=== PATIENT | male | born 1945 | race Caucasian/White ===

== ENCOUNTER 2017-05-09 09:09 | Observation (INO) | payer MEDICARE, OTHER ==
[~2017-05-09 09:09] MED LIST: ALBU0.08 NEB; AMIL5 PO; ANTI2CAP PO; ATOR40TA16 PO; BUME1TAB PO; CALCTAB33 PO; CARV12.52 PO; CENTTAB8 PO; DICY10CA12 PO; FERR1TAB36 PO; FISH1000 PO; FLUT1INH INH; FLUT1SPR5 EACH NARE; FOLI1TAB4 PO; GLIM2TAB PO; GLUC1TAB24 PO; MAGN400T2 PO; NYST10007 TOPICAL; OMEGCAP PO; OXYC1TAB63 PO; POTA10CA PO; PROT40TA PO; SPIRCAP INH; XARE20TA PO; ZYRT10TA PO
[2017-05-09 09:25] VITALS: BP 134/70; PULSE 68; RESP 20; TEMP 98.1; O2SAT 97
[2017-05-09 09:29] VITALS: O2SAT 96
[2017-05-09 09:36] LABS: AUTOMATED NEUTROPHIL # 5.4 TH/MM3 (1.8-7.7); BASOPHIL # 0.1 TH/MM3 (0-0.2); BASOPHIL % 0.7 % (0.0-2.0); EOSINOPHIL # 0.1 TH/MM3 (0-0.4); EOSINOPHIL % 1.6 % (0.0-4.0); HEMATOCRIT 37.2 % (39.0-51.0); HEMO FLAGS DIFF FINAL; LYMPH % 21.9 % (9.0-44.0); LYMPHOCYTE # 1.8 TH/MM3 (1.0-4.8); MEAN CELL VOLUME 89.7 FL (80.0-100.0); MEAN CORPUSCULAR HEMOGLOBIN 28.3 PG (27.0-34.0); MEAN CORPUSCULAR HGB CONC 31.5 % (32.0-36.0); MONO % 7.4 % (0.0-8.0); NEUT % 68.4 % (16.0-70.0); PLATELET COUNT 232 TH/MM3 (150-450); RED BLOOD COUNT 4.14 MIL/MM3 (4.50-5.90); RED CELL DISTRIBUTION WIDTH 14.3 % (11.6-17.2)
[2017-05-09] MEDS ORDERED: IRONTAB5 PO (09:36)
[2017-05-09] MEDS ORDERED: FOLI400T PO (09:36)
[2017-05-09 09:55] LABS: CHLORIDE 101 MEQ/L (98-107); POTASSIUM 4.5 MEQ/L (3.5-5.1); SODIUM (NA) 136 MEQ/L (136-145)
[2017-05-09 09:57] LABS: ANION GAP 8 MEQ/L (5-15); BICARBONATE 26.7 MEQ/L (21.0-32.0); BLOOD UREA NITROGEN 19 MG/DL (7-18)
[2017-05-09 10:01] LABS: GLOMERULAR FILTRATION RATE 50 ML/MIN (>89)
[2017-05-09 10:07] LABS: CREATINE KINASE 80 U/L (39-308)
[2017-05-09] MEDS ORDERED: MORPHINE SULFATE 2 MG/ML INJ IV PUSH ONE (10:15)
--- NOTE | 2017-05-09 10:15 | RADRPT ---
EXAM DATE/TIME: 05/09/2017 09:29 [facility] COMPARISON: CHEST SINGLE AP, August 12, 2015, 14:19. INDICATIONS : Chest pain MEDICAL HISTORY : Chronic obstructive pulmonary disease. Hypertension Myocardial infarction. Diabetes mellitus type II. Cerebrovascular disease, Asthma. DVT, GERD, Seizures SURGICAL HISTORY : Coronary artery stent. ENCOUNTER: Initial ACUITY: 1 day PAIN SCORE: 5/10 LOCATION: Bilateral chest FINDINGS: Portable AP view of the chest demonstrates a normal-sized cardiac silhouette. No effusion, consolidat ion, or pneumothorax is identified. Bones and soft tissues demonstrate no acute finding. There are ol d left rib fractures. EKG lines overlie the patient. CONCLUSION: No acute cardiopulmonary abnormality is identified. Philip Peck MD on May 09, 2017 at 10:13 Board Certified Radiologist. This report was verified electronically.
[2017-05-09 10:37] VITALS: BP 139/70; PULSE 62; RESP 16; O2SAT 97
[2017-05-09 10:42] LABS: APTT (PATIENT) 27.4 SEC (24.3-30.1); INTERNATIONAL NORMALIZED RATIO 1.1 RATIO; PROTHROMBIN TIME - PATIENT 10.7 SEC (9.8-11.6)
[2017-05-09 10:57] VITALS: BP 137/71; PULSE 63; RESP 16; O2SAT 95
[2017-05-09] MEDS ORDERED: IOHEXOL 350 MG/ML 10 ML VIAL (for RAD DIAG) IVCONTRAST ONE (11:19)
--- NOTE | 2017-05-09 11:47 | RADRPT ---
EXAM DATE/TIME: 05/09/2017 11:08 [facility] COMPARISON: No previous studies available for comparison. INDICATIONS : Chest pain. IV CONTRAST: 75 cc Omnipaque 350 (iohexol) IV RADIATION DOSE: 85.25 CTDIvol (mGy) MEDICAL HISTORY : Myocardial infarction. Deep venous thrombosis. Chronic obstructive pulmonary disease.Seizures. Conge stive heart failure. Hypertension. SURGICAL HISTORY : Colostomy. ENCOUNTER: Initial ACUITY: 1 day PAIN SCALE: 7/10 LOCATION: Bilateral chest TECHNIQUE: Volumetric scanning of the chest was performed using a pulmonary embolism protocol MIP images were re constructed. Using automated exposure control and adjustment of the mA and/or kV according to patien t size, radiation dose was kept as low as reasonably achievable to obtain optimal diagnostic quality images. DICOM format image data is available electronically for review and comparison. Follow-up recommendations for detected pulmonary nodules are based at a minimum on nodule size and pa tient risk factors according to Fleischner Society Guidelines. FINDINGS: PULMONARY ARTERIES: No filling defects are seen in the pulmonary arteries through the segmental level. LUNGS: There is no consolidation or pneumothorax . No concerning pulmonary nodule is visualized. PLEURAE: There is no pleural thickening or pleural effusion. MEDIASTINUM: The heart and great vessels demonstrate no acute finding. There is coronary artery calcification and atherosclerotic disease of the aorta. No lymphadenopathy is present. MUSCULOSKELETAL: Degenerative changes of the thoracic spine. MISCELLANEOUS: The visualized upper abdominal organs demonstrate no acute abnormality. CONCLUSION: 1. No PE is identified. 2. Additionally, no acute finding is identified to explain the patient's chest pain. Philip Peck MD on May 09, 2017 at 11:41 Board Certified Radiologist. This report was verified electronically.
[2017-05-09] MEDS ORDERED: SODIUM CHLOR 0.9% 1000 ML INJ 1,000 ML IV ONE (12:30)
[2017-05-09] MEDS ORDERED: ASPIRIN 81 MG CHEW TAB CHEW ONE (12:30)
--- NOTE | 2017-05-09 12:34 | PD ---
HPI Chief Complaint: Chest Pain Time Seen by Provider: 09:57 Travel History International Travel<30 days: No Contact w/Intl Traveler<30days: No Traveled to known affect area: No History of Present Illness HPI Patient is a 71-year-old male with history of [place] and 2 stents placed, who comes in complaining of chest pain. He says the pain woke him up from sleep this morning, and then came on again just prior to arrival. He localizes the pain to his substernal area. He says it feels like in the past when he had an [place]. He denies shortness of breath. He denies fever or chills. He denies nausea or vomiting. He also has history of PE, for which he takes Xarelto. He denies cough or cold symptoms. PFSH Past Medical History Arthritis: Yes Asthma: Yes Cancer: No Cardiovascular Problems: Yes (cad [place] 07/2015 WITH ANGIOPLASTY) High Cholesterol: Yes Chest Pain: Yes Congestive Heart Failure: Yes COPD: Yes Coronary Artery Disease: Yes Diabetes: Yes Patient Takes Glucophage: No Deep Vein Thrombosis: Yes Endocrine: No Gastrointestinal Disorders: Yes (COLOSTOMY, GERD) GERD: Yes Genitourinary: No Hepatitis: No Hiatal Hernia: No Hypertension: Yes Immune Disorder: No Musculoskeletal: Yes Neurologic: Yes Psychiatric: No Reproductive: No Respiratory: Yes Seizures: Yes (metabolic seiures) Sleep Apnea: Yes Thyroid Disease: No Past Surgical History Abdominal Surgery: Yes (colonostomy, hernias, fistula removals) AICD: No Cardiac Surgery: Yes (STENT PLACEMENT X2 ANGIOPLASTY IVC FILTER) Ear Surgery: No Endocrine Surgery: No Eye Surgery: No Genitourinary Surgery: No Joint Replacement: No Oral Surgery: Yes (tonsilectomy ) Pacemaker: No Thoracic Surgery: No Other Surgery: Yes Social History Alcohol Use: No Tobacco Use: No Substance Use: No Allergies-Medications (Allergen,Severity, Reaction): Coded Allergies: Sulfa (Sulfonamide Antibiotics) (Unverified Allergy, Intermediate, Rash, 05/09/17) Reported Meds & Prescriptions Reported Meds & Active Scripts Active Reported [Iron] 65 Mg PO DAILY Folic Acid 0.4 Mg Tab 1 Mg PO DAILY Xarelto (Rivaroxaban) 20 Mg Tab 20 Mg PO DAILY Spiriva Handihaler (Tiotropium Inh) 18 Mcg Cap 18 Mcg INH DAILY 1 capsule = 18 mcg Move Free Joint Health Ad (Jikuxmpkmzb-Qsizujnnhup-Pnifes) 1 Tab Tab 2 PO DAILY [place]-3 Fish Oil/Vitamin (Fish Oil-Cholecalciferol) 1,000-1,000 Mg Cap 2 Cap PO DAILY Calcium 600+D Plus Minerals (Calcium Carbonate-Vitamin D W/Minerals) 600-400 Mg- Unit Tab 1 Tab PO BID Bumetanide 1 Mg Tab 1 Mg PO DAILY Magnesium Oxide 400 Mg Tab 800 Mg PO TID Nystop Topical (Nystatin Topical) 100,000 Unit/Gm Powd 1 Applic TOPICAL ONCE PRN Potassium Chloride ER (Potassium Chloride) 10 Meq Cap 20 Meq PO EVERY OTHER DAY Amiloride (Amiloride HCl) 5 Mg Tab 10 Mg PO DAILY Anti-Diarrheal (Loperamide HCl) 2 Mg Cap 2 Mg PO DIRECTED One capsule after each loose stool. Not to exceed 8 capsules per day. Atorvastatin (Atorvastatin Calcium) 40 Mg Tab 40 Mg PO HS Breo Ellipta Inh (Fluticasone/Vilanterol) 100-25 Mcg/Act Inh 1 Puff INH DAILY Use daily at the same time. Carvedilol 12.5 Mg Tab 25 Mg PO BID Dicyclomine (Dicyclomine HCl) 10 Mg Cap 10 Mg PO TID Fish Oil ([place]-3 Fatty Acids) 1,000 Mg Cap 1 Cap PO BID Glimepiride 2 Mg Tab 2 Mg PO DAILY Take with breakfast or first main meal Protonix (Pantoprazole Sodium) 40 Mg Tab 40 Mg PO DAILY Albuterol Neb (Albuterol Sulfate) 2.5 Mg/3 Ml Neb 2.5 Mg NEB Q4HR NEB PRN Flonase Nasal Burdette (Fluticasone Nasal Burdette) 50 Mcg/Act Burdette 50 Mcg EACH NARE DAILY Review of Systems Except as stated in HPI: all other systems reviewed are Neg General / Constitutional: No: Fever, Chills HENT: No: Headaches, Lightheadedness Cardiovascular: Positive: Chest Pain or Discomfort Respiratory: No: Cough, Shortness of Breath Gastrointestinal: No: Nausea, Vomiting Musculoskeletal: No: Myalgias, Edema Skin: No Rash, No Change in Pigmentation Physical Exam Narrative GENERAL: Awake and alert, in no acute distress. SKIN: Focused skin assessment warm/dry. HEAD: Atraumatic. Normocephalic. EYES: Pupils equal and round. No scleral icterus. ENT: Mucous membranes pink and moist. NECK: Trachea midline. No JVD. CARDIOVASCULAR: Regular rate and rhythm. No murmur appreciated. RESPIRATORY: No accessory muscle use. Clear to auscultation. Breath sounds equal bilaterally. GASTROINTESTINAL: Abdomen soft, non-tender, nondistended. MUSCULOSKELETAL: No obvious deformities. No clubbing. No cyanosis. No edema. NEUROLOGICAL: Awake and alert. No obvious cranial nerve deficits. Motor grossly within normal limits. Normal speech. PSYCHIATRIC: Appropriate mood and affect; insight and judgment normal. Data Data Last Documented VS Vital Signs Date Time Temp Pulse Resp B/P (MAP) Pulse Ox O2 Delivery O2 Flow Rate FiO2 05/09/17 11:32 96 Nasal Cannula 2.00 05/09/17 10:57 63 16 137/71 (93) 05/09/17 09:25 98.1 Orders Orders Electrocardiogram (05/09/17 09:24) Complete Blood Count With Diff (05/09/17 09:24) Basic Metabolic Panel (Bmp) (05/09/17 09:24) Ckmb (Isoenzyme) Profile (05/09/17 09:24) Troponin I (05/09/17 09:24) Chest, Single Ap (05/09/17 09:24) Iv Access Insert/Monitor (05/09/17 09:24) Ecg Monitoring (05/09/17 09:24) Oxygen Administration (05/09/17 09:24) Oximetry (05/09/17 09:24) Act Partial Throm Time (Ptt) (05/09/17 10:15) Prothrombin Time / Inr (Pt) (05/09/17 10:15) Ct Pulmonary Angiogram (05/09/17 10:15) Morphine Inj (Morphine Inj) (05/09/17 10:15) Iohexol 350 Inj (Omnipaque 350 Inj) (05/09/17 11:19) Magnesium (Mg) (05/09/17 11:21) Sodium Chlor 0.9% 1000 Ml Inj (Ns 1000 M (05/09/17 12:30) Admit Order (Ed Use Only) (05/09/17 ) Aspirin Chew (Aspirin Chew) (05/09/17 12:30) NPO (05/09/17 12:24) Labs Laboratory Tests Test 05/09/17 09:30 05/09/17 10:20 White Blood Count 8.0 TH/MM3 Red Blood Count 4.14 MIL/MM3 Hemoglobin 11.7 GM/DL Hematocrit 37.2 % Mean Corpuscular Volume 89.7 FL Mean Corpuscular Hemoglobin 28.3 PG Mean Corpuscular Hemoglobin Concent 31.5 % Red Cell Distribution Width 14.3 % Platelet Count 232 TH/MM3 Mean Platelet Volume 7.6 FL Neutrophils (%) (Auto) 68.4 % Lymphocytes (%) (Auto) 21.9 % Monocytes (%) (Auto) 7.4 % Eosinophils (%) (Auto) 1.6 % Basophils (%) (Auto) 0.7 % Neutrophils # (Auto) 5.4 TH/MM3 Lymphocytes # (Auto) 1.8 TH/MM3 Monocytes # (Auto) 0.6 TH/MM3 Eosinophils # (Auto) 0.1 TH/MM3 Basophils # (Auto) 0.1 TH/MM3 CBC Comment DIFF FINAL Differential Comment Blood Urea Nitrogen 19 MG/DL Creatinine 1.40 MG/DL Random Glucose 202 MG/DL Calcium Level 8.4 MG/DL Sodium Level 136 MEQ/L Potassium Level 4.5 MEQ/L Chloride Level 101 MEQ/L Carbon Dioxide Level 26.7 MEQ/L Anion Gap 8 MEQ/L Estimat Glomerular Filtration Rate 50 ML/MIN Magnesium Level 1.9 MG/DL Total Creatine Kinase 80 U/L Troponin I LESS THAN 0.02 NG/ML Prothrombin Time 10.7 SEC Prothromb Time International Ratio 1.1 RATIO Activated Partial Thromboplast Time 27.4 SEC MDM Medical Decision Making Medical Screen Exam Complete: Yes Emergency Medical Condition: Yes Medical Record Reviewed: Yes Interpretation(s) ECG shows sinus rhythm at 66, no ST elevation or depression. Differential Diagnosis ACS versus NSTEMI versus STEMI versus PE Narrative Course Patient is a 71-year-old male with history of [place] in 2 cardiac stents, who comes in complaining of chest pain. Exam shows no acute abnormalities. IV established, labs sent. 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 Labs show no acute abnormalities. CT of the chest is negative for PE. Patient will be placed in chest pain center for further management. Diagnosis Primary Impression: Chest pain Qualified Codes: R07.9 - Chest pain, unspecified Admitting Information Admitting Physician Requests: Poonam Montenegro MD May 09, 2017 12:34
[2017-05-09 13:05] VITALS: BP 157/86; PULSE 64; RESP 16; O2SAT 97
--- NOTE | 2017-05-09 13:16 | HHI.DCPOC ---
Discharge Care Plan Diagnosis: (1) Costochondral chest pain (2) Costochondritis, acute Goals to Promote Your Health * To prevent worsening of your condition and complications * To maintain your health at the optimal level Follow-up with your primary care provider in 4-5 days and have your kidney function rechecked. Also follow-up with your wash driller helper as an outpatient in the next 7-10 days. May take naproxen as needed for chest wall pain. Directions to Meet Your Goals Take your medications as prescribed Follow your dietary instruction Follow activity as directed Keep your appointments as scheduled Take your immunizations and boosters as scheduled If your symptoms worsen call your PCP, if no PCP go to Urgent Care Center or Emergency Room Smoking is Dangerous to Your Health. Avoid second hand smoke Call the 24-hour hour crisis hotline for domestic abuse at Bala Dubois MD May 09, 2017 13:16
[2017-05-09] MEDS ORDERED: NAPROXEN 500 MG TAB PO ONE (13:30)
--- NOTE | 2017-05-09 14:27 | EKG ---
Date Performed: 05/09/2017 Time Performed: 09:19:14 PTAGE: 71 years EKG: Sinus rhythm POSSIBLE INFERIOR MYOCARDIAL INFARCTION BORDERLINE ECG No significant change from prior electrocardi ogram. PREVIOUS TRACING : 08/13/2015 04.53 DOCTOR: Sky Corcoran Interpretating Date/Time 05/09/2017 14:25:46
--- NOTE | 2017-05-09 18:28 | HHI.HP ---
HPI Service [facility] Primary Care Physician Non-Staff Admission Diagnosis Chest Pain Diagnoses: (1) Costochondral chest pain (2) Costochondritis, acute Chief Complaint: Chest pain Travel History International Travel<30 Days: No Contact w/Intl Traveler <30 Da: No Traveled to Known Affected Are: No History of Present Illness 71-year-old white male who I have been called to evaluate for chest pain center. Patient was in his usual state of health until earlier this morning after waking up he experienced some sternal pain that was aching in nature and up to an 8 out of 10. Patient says his pain got better when he laid down as opposed to sitting up. He did not take any new medications for the pain. He decided come to the emergency room since he had a substantial history of pulmonary emboli and coronary artery disease. is present at the bedside and is also a great supplemental historian. She says this time he did not have the typical associated symptoms of nausea, vomiting, and diaphoresis. No fevers or chills. does suspect that this may be chest wall strain as the patient was evaluated by his surgeon yesterday in the office where he was put on a surgical examination table in a prone position bent over forward - and this was apparently very straining on the patient. She said he was started on clindamycin this week for cellulitis surrounding his ostomy bag site by his surgeon. Patient denies any new changes to his lifestyle otherwise. The ensures that the patient's very compliant as he is on Xarelto for his emboli. ED staff had called me after they had performed a CT scan which was unremarkable for any emboli, troponins were unremarkable, and EKG showed no new ST segment changes concerning for ischemia or infarction. Review of Systems Except as stated in HPI: all other systems reviewed are Neg Past Family Social History Past Medical History Multiple colonic issues CAD with stents Pulmonary emboli and DVTs Allergies: Coded Allergies: Sulfa (Sulfonamide Antibiotics) (Unverified Allergy, Intermediate, Rash, 05/09/17) Family History Hypertension Social History Patient denies any tobacco use now or in the past, says he used to drink but he has not for many years now. Physical Exam Vital Signs Vital Signs Date Time Temp Pulse Resp B/P (MAP) Pulse Ox O2 Delivery O2 Flow Rate FiO2 05/09/17 14:34 05/09/17 13:05 64 16 157/86 (109) 97 05/09/17 11:32 96 Nasal Cannula 2.00 05/09/17 10:57 63 16 137/71 (93) 95 Nasal Cannula 2.00 05/09/17 10:37 62 16 139/70 (93) 97 Nasal Cannula 2.00 05/09/17 09:29 96 05/09/17 09:29 Nasal Cannula 2.00 05/09/17 09:25 98.1 68 20 134/70 (91) 97 Physical Exam VS: Afebrile GENERAL: Elderly white male, well-nourished, sitting up in bed, no acute distress SKIN: Warm and dry. EYES: No scleral icterus. No injection or drainage. ENT: No nasal bleeding or discharge. Mucous membranes pink and moist. CARDIOVASCULAR: Regular rate and rhythm. no murmurs RESPIRATORY: No accessory muscle use. Clear to auscultation. Breath sounds equal bilaterally. GASTROINTESTINAL: Abdomen soft, non-tender, nondistended. Ostomy bag on left lower quadrant with some mild surrounding erythema of the skin that is circumferential to the bag insertion site Extremities: No clubbing, cyanosis, or edema. No obvious deformities. MUSCULOSKELETAL: Adequate muscle bulk and tone in all 4 distal extremities. Patient has very prominent reproducible tenderness to palpation over his suprasternal area which he clearly indicates is the pain that he experienced at home. NEUROLOGICAL: Awake and alert. No obvious cranial nerve deficits. No facial droop nor slurred speech noted. PSYCHIATRIC: Appropriate mood and affect; insight and judgment normal. Laboratory Laboratory Tests Test 05/09/17 09:30 05/09/17 10:20 White Blood Count 8.0 Red Blood Count 4.14 Hemoglobin 11.7 Hematocrit 37.2 Mean Corpuscular Volume 89.7 Mean Corpuscular Hemoglobin 28.3 Mean Corpuscular Hemoglobin Concent 31.5 Red Cell Distribution Width 14.3 Platelet Count 232 Mean Platelet Volume 7.6 Neutrophils (%) (Auto) 68.4 Lymphocytes (%) (Auto) 21.9 Monocytes (%) (Auto) 7.4 Eosinophils (%) (Auto) 1.6 Basophils (%) (Auto) 0.7 Neutrophils # (Auto) 5.4 Lymphocytes # (Auto) 1.8 Monocytes # (Auto) 0.6 Eosinophils # (Auto) 0.1 Basophils # (Auto) 0.1 CBC Comment DIFF FINAL Differential Comment Blood Urea Nitrogen 19 Creatinine 1.40 Random Glucose 202 Calcium Level 8.4 Sodium Level 136 Potassium Level 4.5 Chloride Level 101 Carbon Dioxide Level 26.7 Anion Gap 8 Estimat Glomerular Filtration Rate 50 Magnesium Level 1.9 Total Creatine Kinase 80 Troponin I LESS THAN 0.02 Prothrombin Time 10.7 Prothromb Time International Ratio 1.1 Activated Partial Thromboplast Time 27.4 Result Diagram: 05/09/17 0930 05/09/[address] Angiography 05/09/17 1015 Signed Impressions: Service Date/Time: Tuesday, May 09, 2017 11:08 - CONCLUSION: 1. No PE is identified. 2. Additionally, no acute finding is identified to explain the patient's chest pain. Philip Peck MD Chest X-Ray 05/09/17923 Signed Impressions: Service Date/Time: Tuesday, May 09, 2017 09:29 - CONCLUSION: No acute cardiopulmonary abnormality is identified. Philip Peck MD [place] VTE Risk Assessment Caprini VTE Risk Assessment: Mod/High Risk (score >= 2) Caprini Risk Assessment Model Point Value = 1 Point Value = 2 Point Value = 3 Point Value = 5 Age 41-60 Minor surgery BMI > 25 kg/m2 Swollen legs Varicose veins or History of unexplained or recurrent spontaneous Oral contraceptives or hormone replacement Sepsis (< 1 month) Serious lung disease, including pneumonia (< 1 month) Abnormal pulmonary function Acute myocardial infarction Congestive heart failure (< 1 month) History of inflammatory bowel disease Medical patient at bed rest Age 61-74 Arthroscopic surgery Major open surgery (> 45 min) Laparoscopic surgery (> 45 min) Malignancy Confined to bed (> 72 hours) Immobilizing plaster cast Central venous access Age >= 75 History of VTE Family history of VTE Factor V Leiden Prothrombin [id number] Lupus anticoagulant Anticardiolipin antibodies Elevated serum homocysteine Heparin-induced thrombocytopenia Other congenital or acquired thrombophilia Stroke (< 1 month) Elective arthroplasty Hip, pelvis, or leg fracture Acute spinal cord injury (< 1 month) Prophylaxis Regimen Total Risk Factor Score Risk Level Prophylaxis Regimen 0-1 Low Early ambulation 2 Moderate Order ONE of the following: *Sequential Compression Device (SCD) *Heparin 5000 units SQ BID 3-4 Higher Order ONE of the following medications: *Heparin 5000 units SQ TID *Enoxaparin/Lovenox 40 mg SQ daily (WT < 150 kg, CrCl > 30 mL/min) *Enoxaparin/Lovenox 30 mg SQ daily (WT < 150 kg, CrCl > 10-29 mL/min) *Enoxaparin/Lovenox 30 mg SQ BID (WT < 150 kg, CrCl > 30 mL/min) AND/OR *Sequential Compression Device (SCD) 5 or more Highest Order ONE of the following medications: *Heparin 5000 units SQ TID (Preferred with Epidurals) *Enoxaparin/Lovenox 40 mg SQ daily (WT < 150 kg, CrCl > 30 mL/min) *Enoxaparin/Lovenox 30 mg SQ daily (WT < 150 kg, CrCl > 10-29 mL/min) *Enoxaparin/Lovenox 30 mg SQ BID (WT < 150 kg, CrCl > 30 mL/min) AND *Sequential Compression Device (SCD) Assessment and Plan Assessment and Plan Chest pain - This in fact his chest wall pain. Despite the patient's history of coronary artery disease and pulmonary emboli, his history and physical exam currently strongly suggest a muscle skeletal etiology. The verbalizes stating that she did not think it was a pulmonary embolus to any degree even before the CT scan was ordered. I have independently reviewed the chest x-ray and EKG - both of which are unremarkable for any acute findings. I feel that the patient may have indeed strained his anterior chest wall during his recent examination in the surgeon's office as he does have a large body habitus. - The verbalizes that she is a retired nurse and is very comfortable with the patient going home and can take care of him pending a discharged today. I explained to the that the most heart healthy NSAID for pain control is Aleve. Instead of aspirin, I will cancel that were ordered by the emergency room staff and instead order a one-time dose of naproxen 500 mg by mouth for pain control. His lab workup indicates he has a very mild HSERRI and given that he just received a dose of contrast, I will give him a dose of normal saline bolus cautiously. denies patient ever having any history of a very poor ejection fraction. I explained to her in the patient to have him check his kidney function and his primary care physician's office within a week's time upon discharge. Patient's most recent vital signs indicated that he was saturating well in the 90s upon room air with a blood pressure 150s over 80s and a pulse in the 60s. Patient has met maximal benefit from medical care and is clinically stable for discharge after receiving IV bolus. Bala Dubois MD May 09, 2017 18:28
== END 2017-05-09 14:37 | disposition home or self-care (01) ==
LOC: PHED 09:09 → PHEDA 12:25
PROVIDERS: ADMIT Hospitalist; ATTEND Hospitalist
DX: M94.0 Chondrocostal junction syndrome [Tietze] (principal); R07.89 Other chest pain; I25.2 Old myocardial infarction; I25.10 Atherosclerotic heart disease of native coronary artery without angina pectoris; E78.00 Pure hypercholesterolemia, unspecified; I50.9 Heart failure, unspecified; I11.0 Hypertensive heart disease with heart failure; J44.9 Chronic obstructive pulmonary disease, unspecified; E11.9 Type 2 diabetes mellitus without complications; K21.9 Gastro-esophageal reflux disease without esophagitis; G47.30 Sleep apnea, unspecified; Z93.3 Colostomy status; Z86.711 Personal history of pulmonary embolism; Z79.01 Long term (current) use of anticoagulants
CPT/HCPCS: 71010; 71275; 80048; 82550; 83735; 84484; 85025; 85610; 85730; 93005; 96374; 99285; G0378; J2270; J7030; Q9967